=== PATIENT | male | born 1935 | race Caucasian/White ===

== ENCOUNTER 2021-01-12 14:38 | Inpatient (IN) | payer MEDICARE, OTHER ==
[~2021-01-12] VITALS: Ht 182.9 cm; Wt 97.9 kg
[2021-01-12] MEDS ORDERED: ELIQUIS5 MG PO (16:21)
[2021-01-12] MEDS ORDERED: LIPITOR20 MG PO (16:21)
[2021-01-12] MEDS ORDERED: BUSPAR5 MG PO (16:22)
[2021-01-12] MEDS ORDERED: DONEPEZIL HCL5 MG PO (16:22)
[2021-01-12] MEDS ORDERED: PROSCAR5 MG PO (16:22)
[2021-01-12] MEDS ORDERED: MELATONIN 3 MG1 TAB PO (16:23)
[2021-01-12] MEDS ORDERED: MIRALAX17 GM PO (16:23)
[2021-01-12] MEDS ORDERED: PROTONIX40 MG PO (16:24)
[2021-01-12] MEDS ORDERED: MULTI-DAY VITAM1 TAB PO (16:24)
[2021-01-12] MEDS ORDERED: TRAZODONE HCL50 MG PO (16:25)
[2021-01-12] MEDS ORDERED: BACTRIM DS TAB1 EAC1 PO (16:25)
[2021-01-12 16:33] VITALS: BP 126/73; BMI 29.3
--- NOTE | 2021-01-12 16:50 | NUR ---
NEW ADMIT TO DOCTOR MEJIAS FOR AGGRESSION FROM [facility]. PATIENT WAS YELLING OUT, AGGRESSIVE WITH STAFF AND , AND UNCOOPERATIVE WITH CARE. PATIENT TRANSPORTED VIA EMS. UPON ARRIVAL, PATIENT WAS SLIGHTLY UNCOOPERATIVE WITH CARE. COMPLIANT WITH ADMISSION ASSESSMENTS. NATALIIA ALARM PLACED ON BED. ALARM ON AND WORKING. , CALLIE HALL, NOTIFIED OF PATIENT'S ARRIVAL. TELEPHONE CONSENTS TO TREAT RECEIVED FROM CALLIE. CODE STATUS DISCUSSED WITH . PATIENT IS A FULL CODE. CODE NUMBER FOR INFORMATION OF 5903 GIVEN TO . GIVEN UNIT INFORMATION. SHE VERBALIZES UNDERSTANDING. STATES "I FEEL ALOT BETTER ABOUT HIM COMING TO [facility] UNIT NOW. THANK YOU."
[2021-01-12 20:00] VITALS: BP 163/63
--- NOTE | 2021-01-12 20:02 | NUR ---
RECEIVED IN BEDROOM. RESTING QUIETLY IN A RECLINING CHAIR. CALM AND COOPERATIVE WITH CARE AND ASSESSMENT. NO SIGNS OF AGGRESSION. DIFFICULT WITH SIMPLE DIRECTIONS. REDIRECT AND REORIENT NEEDED. CONTINUES TO REST QUIETLY IN A RECLINER. CONTINUE PLAN OF CARE.
--- NOTE | 2021-01-13 07:40 | NUR ---
NURSE SPOKE WITH PT'S . PASSCODE GIVEN. SHE WANTED AN UPDATE ON HOW HE WAS DOING. NURSE REPORTED WHAT PREVIOUS SHIFT STATED NO BEHAVIORS. NURSE NOTED THUS FAR NO BEHAVIORS NOTED ON THIS SHIFT. PT ALLOWED STAFF TO OBTAIN VITALS SIGNS, ASSESSMENT. COVID SWABBED OBTAINED. NO BEHAVIORS NOTED. PT CONTS ON DROPLET ISOLATION FOR PUI COVID. SHE INQUIRED ABOUT IF THE DOCTOR WILL PRESCRIBE HIM ANY ANTIPSYCHOTIC DRUGS DO YOU KNOW? NURSE NOTED THAT NURSE COULD NOT MAKE THAT DETERMINATION IF THE DOCTOR WOULD PRESCRIBE ANY MEDICATIONS. NURSE STATED THE DOCTORS WOULD BE IN TODAY TO EVAL HIM. WE GENERALLY RECOMMEND SEVERAL DAYS FOR PT TO SETTLE IN BEFORE A IN DEPTH ASSESSMENT CAN BE REPORTED. "WELL THATS GOOD SO YOU SAID NO AGGRESSION HUH?" NURSE STATED PREVIOUS SHIFT DID NOT REPORT ANY AND THUS FAR NO HAS BEEN NOTED. SOMETIMES IT DOES TAKE LONGER FOR BEHAVIORS TO MANIFEST. SHE SOMEWHAT VERBALIZIED UNDERSTANDING. SHE STATED SHE DID NOT LIKE THE 2 PREVIOUS PLACES AND THAT SHE DID NOT LIKE HE GOT HALDOL FOR AGRESSION. NURSE NOTED SHE COULD CALL AT ANY TIME FOR UPDATES ON PT FROM STAFF BUT RECOMMANDED A COUPLE OF DAYS BEFORE FAMILY PHONE CALLS. SHE VERBALIZIED UNDERSTANDING.
[2021-01-13 07:59] VITALS: BP 107/71
--- NOTE | 2021-01-13 08:27 | PSY ---
PATIENT NAME:ARETHA AHLL MEDICAL RECORD: [id number] : 39 LOCATION:[facility] ADMISSION DATE: 01/12/21 ACCOUNT: [id number] PSYCHIATRIC EVALUATION DATE OF EVALUATION: 01/12/21 IDENTIFYING DATA: The patient is 85 years old. He is admitted to the hospital on a voluntary basis. CHIEF COMPLAINT: Aggression. HISTORY OF PRESENT ILLNESS: The patient comes to us from a rehabilitation center in [place]. 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 After 2 days at the rehabilitation center, they were unable to handle him because of his aggression and have referred him to us. Apparently, we were the closest facility that could meet his needs. The patient himself is oriented to person only. He tells me he does not know why they sent him, but he is fine with being here. He denies that he was aggressive. He denies he has had a stroke and he tells me he was never in a rehab center at a longterm. PAST MEDICAL HISTORY: Significant for 2 previous strokes, the most recent one being within the past few weeks. He does have some right-sided weakness, but no facial droop. No speech abnormalities are observable. He has a history of atrial fibrillation and hypertension. PAST PSYCHIATRIC HISTORY: Significant for a previous psychiatric hospitalization in another facility. I do not know the circumstances associated with that. His has spoken to one of our nurses. I have not spoken to her yet. She says that he was over sedated and wants us to be careful not to do that again. FAMILY HISTORY: Unknown. ALLERGIES: No known drug allergies. CURRENT MEDICATIONS: Please see the admissions MAR. SOCIAL HISTORY: The patient has been 5 times. His current and he have been for 20 years. He has 3 children according to the fifth , he tells me he only has 2. He tells me that he is a [employer] and retired . 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 He denies a history of alcohol, drug or tobacco abuse, which may or may not be accurate. MENTAL STATUS EXAMINATION: The patient is awake, alert and oriented to person only. He tells me he is 35 years old and that he is in [place]. His mood is euthymic. His affect is appropriate. Thought processes are disorganized. Memory, concentration, and abstraction abilities are impaired. He denies that he would seek to harm himself or others as well as psychotic symptoms. ASSESSMENT: AXIS I: Major vascular neurocognitive disorder. AXIS II: None. AXIS III: Atrial fibrillation, hypertension, status post stroke. AXIS IV: Moderate. AXIS V: Global assessment of functioning is 30. PLAN: At this time, the patient is admitted to the hospital secondary to aggressive behavior at a longterm. He will be treated with both mood stabilizing and memory enhancing medications. His long-term prognosis is guarded. TRANSINT:[id number] Voice Confirmation ID: [id number] DOCUMENT ID: [id number] JAIME MEJIAS MD at 0827 CC: [id number] DICTATION DATE: 01/12/21 1600 FELTING MACHINE OPERATOR: 01/12/21 1611 ADM IN [facility] [address] [place] [address]
--- NOTE | 2021-01-13 08:45 | NUR ---
PT STATED IN PREVIOUS PHONE CALL THIS SHIFT IN REGARDS TO EATING HABITS. SHE DID NOT WANT STAFF TO FEED PT IF HE CAN DO IT HIMSELF AND THATS NOT GOING TO HELP HIM GET ANY BETTER. NURSE STATED WE WOULD ASSIST FEED PT AND SET UP PTS TRAY NEEDED. SHE STATED HE DOES NOT DRINK ALOT AND HE HAS A RIGHT SIDE DEFICIENT AND HE CAN SEE ON HIS RIGHT SIDE. SO YOUR GOING TO HAVE TO SET IT ON HIS LEFT SIDE.
[2021-01-13 10:02] LABS: BASOPHILS 0.3 % (0-2); EOSINOPHILS 1.5 % (0-7); HEMATOCRIT 39.7 % (42.0-54.0); HEMOGLOBIN 13.3 g/dL (13.5-17.5); IMMATURE GRANULOCYTES 0.2 % (0-5); LYMPHOCYTE ABS# 1.56 10x3/uL (1.32-3.57); LYMPHOCYTES 14.9 % (15-50); MCH 32.4 pg (26.0-34.0); MCHC 33.5 g/dL (31.0-37.0); MCV 96.6 fL (80.0-100.0); MEAN PLATELET VOLUME 10.5 fL (7.4-10.4); MONOCYTES 7.7 % (2-11); NEUTROPHIL ABS# 7.91 10x3/uL (1.78-5.38); NEUTROPHILS 75.4 % (40-80); RBC 4.11 10x6/uL (4.20-6.10); RDW 13.3 % (11.5-14.5); WBC 10.5 10x3/uL (4.8-10.8)
[2021-01-13 10:04] LABS: PLATELET COUNT 148 10x3/uL (130-400)
[2021-01-13 10:23] VITALS: Ht 182.9 cm; Wt 97.9 kg
--- NOTE | 2021-01-13 11:01 | NUR ---
PT/OT HERE TO EVAL FOR ADMISSION. WILL EVAL AT A LATER TIME DUE TO PT BEING DROWSY.
[2021-01-13 11:02] LABS: ALBUMIN 3.5 g/dL (3.4-5.0); ALKALINE PHOSPHATASE 63 U/L (30-120); ALT (SGPT) 29 U/L (10-68); BILIRUBIN - TOTAL 1.65 mg/dL (0.2-1.3); CALC OSMOLALITY 276 mosm/kg (275-300); CALCIUM 9.2 mg/dL (8.5-10.1); CARBON DIOXIDE 24.2 mmol/L (21.0-32.0); CHLORIDE - SERUM 103 mmol/L (98-107); CHOLESTEROL, TOTAL 125 mg/dL (0-200); CREATININE - SERUM 1.1 mg/dL (0.6-1.3); GLUCOSE 97 mg/dL (74-106); HDL CHOLESTEROL 62 mg/dL (32-96); LDL CHOLESTEROL 52 mg/dL (0-100); LDL-HDL RATIO 0.8 ratio (1.5-3.5); POTASSIUM - SERUM 4.4 mmol/L (3.5-5.1); PROTEIN - SERUM 6.6 g/dL (6.4-8.2); SODIUM 138 mmol/L (136-145); THYROID STIMULATING HORMONE 0.57 uIU/mL (0.36-3.74); TRIGLYCERIDE 58 mg/dL (30-200); UREA NITROGEN 14 mg/dL (7-18); eGFR NON AFRICAN AMERICAN 68 mL/min (90-120)
--- NOTE | 2021-01-13 12:35 | NUR ---
PT CALLIE CALLED TO CHECK ON PT AT THIS TIME. PASSCODE GIVEN. SHE WANTED TO KNON HOW HE WAS DOING. OTHER NURSE GAVE AN UPDATE AT THIS TIME. NURSE GAVE AN UPDATE OF MEDS, LUNCH ASSIST AND NO AGRESSION NOTED. SHE INQUIRED IF HE HAD EATEN, ANY AGGRESSION NOTED. SHE STATED WELL WHAT IS GOING ON AT THE OTHER PLACE? THEY SHIPPED HIM OUT BEFORE 24 HOURS OVER THERE. NURSE GAVE AN UPDATE HOW FOOD ASSIST.
--- NOTE | 2021-01-13 14:52 | NUR ---
Rec'd patient this am lying supine in a reclining wheelchair. "Stefan" is A/O times 1 to person. When he is spoken to, he will open his eyes. He is non-verbal to this nurse. He is calm and he followed a few simple directions, otherwise he lies in his chair with his eyes closed.He has a HX of CVA. He has had no yelling out and no agressive episodes to this date/nurse or to other patients. His calls freq. stone the day requesting information about his care and needs. He is a one to one activity and a one to one to group. He will be brought to activity/group when he is out of PUI isolation.
--- NOTE | 2021-01-13 18:12 | NUR ---
With MHT present, attempted to transfer patient from w/c to bed amd after setting him down to bed, he became combative and started punching this nurse in the chest and abdomen. The MHT was able to talk to him and settle him to the point of him lowering his arms and stating "I'm sorry".
[2021-01-13 20:00] VITALS: BP 106/61
--- NOTE | 2021-01-14 01:36 | NUR ---
RECEIVED PATIENT IN HIS ROOM, HE IS PUI, HE IS COOPERATIVE WITH MEDS, PLEASANT, NO YELLING OR AGGRESSION AT THIS TIME. HOWEVER HE DID SHOW AGGRESSION EARLIER ON PREVIOUS SHIFT AND THIS WAS DISCUSSED WITH HIS AND SHE WAS INFORMED THAT HE WAS ABLE TO BE DEESCALATED WITHOUT MEDICATION. HE WAS COMPLIANT WITH MEDS. WILL FOLLOW POC
[2021-01-14 08:13] LABS: RAPID PLASMA REAGIN Non Reactive (Non Reactive)
[2021-01-14 08:50] VITALS: BP 111/56
--- NOTE | 2021-01-14 08:54 | PN ---
PATIENT:ARETHA HALL MEDICAL RECORD: [id number] LOCATION:[facility] ADMISSION DATE: 01/12/21 PROGRESS NOTE DATE OF SERVICE: 01/13/2021 SUBJECTIVE: The patient's case was discussed with staff. He has no new complaint. OBJECTIVE: The patient is very significantly and seriously impaired cognitively. He has almost no insight about his situation. He has not been aggressive today. ASSESSMENT: Dementia. PLAN: Current medicines have been reviewed. I am going to start him on Namenda at a dose of 2.5 mg twice daily. TRANSINT:[id number] Voice Confirmation ID: [id number] DOCUMENT ID: [id number] JAIME MEJIAS MD at 0854 CC: [id number] DICTATION DATE: 01/13/21 170 DIVISION ORDER ANALYST: 01/14/21 0115 ADM IN [facility] [address] [place] [address]
--- NOTE | 2021-01-14 10:00 | NUR ---
SW SPOKE TO PT'S , CALLIE, TO DISCUSS DISEASE PROGRESSION, UNIT ORIENTATION, DIFFERENT LEVELS OF CARE, PT'S CONDITION, PT'S BEHAVIORS ON THE UNIIT, CARE GIVING STRESS, THE IMPORTANCE OF SELF CARE, DISCHARGE PLANNING NEEDS, DISEASE PROGRESSOIN, AND RESOURCES FOR FAMILIES SUCH THE 36 HOUR DAY AND ALZ.ORG. CALLIE STATED SHE WAS HAPPY WITH THE CARE PT IS BEING GIVEN ON THE UNIT. SHE REPORTED NO OTHER NEEDS AND VOICED UNDERSTANDING OF CONVERSATION.
--- NOTE | 2021-01-14 10:19 | NUR ---
NURSE ENTERED PT ROOM DUE TO BED ALARM GOING OFF. PT WAS SITTING ON SIDE OF BED UNDRESSED. ATTEMPTING TO PUT THE COVERS OVER HIS HEAD. NURSE REDIRECTED PT BACK INTO BED, REDRESSED, FIXED COVERS. PT DID NOT UNDERSTAND REDIRECTION DUE TO LOW CONGITIVE FUNCTION. PT YELLED OUT "I GOTTA GO DO IT." NURSE STATED SHE COULD TAKE CARE OF ISSUE. PT YELLED "NO I DONT CARE WHO DOES I DO." NURSE REDIRECTED AND REDRESSED PT. BED ALARM IN PLACE AND ACTIVE. NURSE NOTIFIED OF INCIDENT AT THIS TIME. WILL CONT PLAN OF CARE.
--- NOTE | 2021-01-14 10:22 | NUR ---
PT LAYING IN BED AT THIS TIME. PT IS CONFUSED AND DISORIENTED TO PLACE, TIME AND SITUATION. ALERT TO SELF ONLY. PT CAN NOT MAKE NEEDS KNOWN. PT IS DIFFICULT TO REDIRECT AT THIS TIME. PT CAN NOT UNDERSTAND REDIRECTION. PT IS COMPLIANT WITH MEDS, VITALS AND ASSESSMENTS. CONTS ON DROPLET PRECAUTIONS FOR PUI SARS-19 RESULTS. CONT ON ISOLATION UNTIL RESULTS ARE BACK. PT HAS RIGHT SIDE WEAKNESS. REQUIRES ASSISTANCE WITH ALL ALDS. BED ALARM IN PLACE AND ACTIVE. WILL CONT PLAN OF CARE.
--- NOTE | 2021-01-14 17:50 | NUR ---
Late Entry: Nurse spoke with pt at this time. passcode given at this time. requested an update on pts combative behavior, medications changes, and how he was doing in general. nurse stated pt was sitting in [place] by nursing station due to attempting to walk by himself and causing the alarm in go off. she stated she could not believe he tried to walk by himself since he cant walk. so is he having any aggressive behavior?" nurse noted that he has some aggressive behavior with redirection. she stated well im glad that your doctor does not just throw medications at him. The last last place did and i was not happy." nurse stated the reason for long admission stays are due to the doctor on staff here does not like to start with high doses for agressive behaviors. she did verbalize some understanding stating well so far im happy with the care he has rec'd so far and stated she would call at a later time.
[2021-01-14 20:00] VITALS: BP 117/78
[2021-01-14 22:49] LABS: BILIRUBIN NEGATIVE (NEGATIVE); KETONE NEGATIVE (NEGATIVE); NITRITE NEGATIVE (NEGATIVE); UROBILINOGEN NORMAL mg/dL (< 2)
[2021-01-14 22:53] LABS: BACTERIA FEW HPF (NONE SEEN); SQUAMOUS EPITHELIAL NONE SEEN HPF (0-4); WHITE CELLS - URINE 0-5 HPF (0-1)
--- NOTE | 2021-01-15 02:55 | NUR ---
B) Patient is alert and oriented to self, very confused, right side weakness, patient does not understand instruction at times, I) Administered scheduled medications as ordered, monitored for safety R) Mediation compliant, sleeping now quietly in his bed, P) Continue plan of care.
--- NOTE | 2021-01-15 09:37 | NUR ---
Nutrition Follow-up Eating well per MD notes. Diet: Regular PO intake: ~57% average x last 6 meals Last BM: 01/14/21 x 4. Wt: 215.8# (01/13/21) Meds noted: megace, MVI, bactrim. Labs reviewed. Estimated nutrition needs and nutrition diagnosis unchanged at this time. Nutrition goals- progressing Recommend continue regular PO diet, or per APPLICATION ARCHITECT recommendations. Recommend continue to encourage PO intake at meals times. Offer oral nutrition supplement if patient eats <65% of meals. RD will follow-up 01/20/21.
--- NOTE | 2021-01-15 10:01 | NUR ---
lab called to notify nurse the sample was not adequate to run test and would have to be retested. Nurse notified nurse manager of change, order in the computer for retest.
[2021-01-15 11:37] VITALS: BP 109/67
--- NOTE | 2021-01-15 12:43 | NUR ---
PT SITTING IN W/C EATING WITH ASSISTANCE AT THIS TIME. CONFUSION NOTED. REDIRECT AND REORIENT NEEDED. NO AGRESSIVE BEHAVIOR NOTED THUS FAR. PT IS ALERT TO SELF ONLY. RIGHT SIDE WEAKNESS NOTED. ASSIST WITH ADLS. CAN NOT MAKE NEEDS KNOWN. PT COMPLIANT WITH MEDS, VITALS AND ASSESSMENTS. PT CONTS TO HAVE MULTIPLE BRUISES FROM PRIOR TO ADMISSION. NO C/O OF FACIAL GRIMACING NOTED. BED ALARM AND CHAIR ALARM IN PLACE AND ACTIVE. PT CONTS ON DROPLET ISOLATION DUE TO RESULTS NOT CLEAR. WILL CONT PLAN OF CARE.
--- NOTE | 2021-01-15 16:16 | NUR ---
Nurse spoke with at this time. passcode given. she inquired about if he had any new med changes. nurse stated the only new medication change was Megace was added yesterday. she stated well gosh he eats well so i don't understand why he has something to make him eat. Nurse stated that the doctor stated in her note that since he was feeder that she would add a medication to continue good eating habits. she inquired about why he was not started on any medications for his aggression. nurse stated he has not had any extreme agressive behaviors and sleeping well at night. he has on been here since 01/12/21. It's still early in the evaluation process of medication changes. nurse spoke with her about toileting, facility choices, brief, bladder concern, COVID results had to be redone. In the hallway with a mask on. cont to take antibiotic for UTI. he is not on many medications as it is. She had a neuropsych doctor pull him off all his pysch medications and that helped. He was aggressive while he was on that medications. she stated that she was happy with the care he is rec'ing. she stated she was going to call after 5:30 to see how he is going to react. she verbalizied understanding. nurse gave her tips on communication when she calls to speak with him so he is not agitated with her phone call. she verbalizied understanding.
[2021-01-15 17:21] LABS: SARS-CoV-2 ANTIGEN NEGATIVE- SARS-COV-2 (NEGATIVE)
--- NOTE | 2021-01-15 17:50 | NUR ---
SPOUSE CALLS ,PASSCODE RECEIVED.SPOUSE REQUEST TO SPEAK WITH .THIS NURSE ASKED HER IF SHE COULD CALL BACK BECAUSE HE IS EATING,BEING FED PER TECH,TRAYS WERE SERVED LATE. LOUDLY AND ANGRILY STATED "I JUST TALKED TO SOMEONE AND SHE SAID TO CALL BACK IN 15 MINUTES AND IT'S BEEN 20.THIS NURSE ASKED HER IF SHE WOULD LIKE FOR ME TO TAKE HIS TRAY AND LET HIS FOOD GET COLD.SHE LOUDLY AND ANGRILY STATED"YOU DON'T HAVE TO TALK TO ME THAT WAY,I'M NOT AN IDIOT." THIS NURSE ATTEMPTED TO APOLOGIZE FOR OFFENDING HER BUT SHE HUNG UP .
--- NOTE | 2021-01-15 18:53 | NUR ---
called 3x. staff attempted to take cordless phone to pts room. hunged up each time before staff could make it into pts room. called during time pt was in restroom staff asked for her to call back. she stated she would do so. talked to pt at 1829. pt did not seem upset by phone call at this time. nurse asked if it went well. pt stated "what went well?"
[2021-01-15 20:00] VITALS: BP 114/69
--- NOTE | 2021-01-15 21:27 | NUR ---
PT IS RECEIVED IN HIS ROOM ON DROPLET ISOLATION PENDING COVID RESULTS. PT IS ALERT AND ORIENTED TO SELF ONLY. POOR INSIGHT INTO HIS SITUATION. RESTLESS AT TIMES. EASY TO REDIRECT. NO AGGRESSION NOTED. VERY UNSTEADY GAIT. COMPLIANT WITH ALL MEDICATIONS. DENIES ANY FURTHER NEEDS. BED ALARM ON AND WORKING. MONITOR FOR SAFETY.
--- NOTE | 2021-01-16 05:18 | NUR ---
SPOKE WITH PT WITH A BEHAVIOR UPDATE. INFORMED HER THAT HE IS RESTLESS AT TIMES BUT WAS ABLE TO BE REDIRECTED. NO AGGRESSION NOTED. PT EXPRESSED APPRECIATION WITH STAFF. SHE RELATED THAT HE WAS SUPPOSED TO DC TO SNF REHAB BUT SHE WAS HESITANT AND WANTED TO DISCUSS WITH RUFUS OTHER OPTIONS SOMETIME BEFORE DISCHARGE.
[2021-01-16 08:14] VITALS: BP 167/91
--- NOTE | 2021-01-16 09:51 | NUR ---
The patient is so confused, he does not understand he is on isolation for PCR, so he will not stay in his room, he is sitting in the hudson away from staff and peers with a mask on, he has poor insight into his situation and he can not communicate his needs, he tries to ambulate, but he is unsteady. He needs frequent reminders not to walk alone and help to put his mask on. He needs assist to eat, ambulate, and toilet. Provide prescribed meds. He is compliant with meds. He did not want to listen about wearing his mask and he got upset and tried to fight a little. Walked him to his room, but he decided to wear his mask and come back out. Continue POC.
--- NOTE | 2021-01-16 10:05 | NUR ---
Spoke to the patient's spouse and she checked on him, she wanted to ensure that he get physical therapy. Explained to her that staff have walked him and he does ok, but he takes baby steps. Explained to her that he gets frustrated, but he has not shown aggression this am, ensured her that we will make sure he has a physical therapy to get him stronger.
--- NOTE | 2021-01-16 10:25 | NUR ---
The patient is assisted by two staff to his room to lay down. He asked to go home, but explained to him that he is in the hospital because his behavior was aggressive and a lot of times a stroke will cause you to act differently. He listened and acted like he understood. He was getting frustrated because he wanted to leave.
--- NOTE | 2021-01-16 16:26 | NUR ---
The patient stood up and staff were trying to redirect him and he did not like that and he stood and he is so unsteady he fell back, he laughed and staff picked him up and explained to him that he was unsteady, but he doesn't comprehend. Marga his spouse notified and Dr. Sesay notified. VSS except HR 102. Patient did not hit his head and Biaca and this nurse saw him fall. AROM, no new bruises, although, he has old bruises to his buttocks.
--- NOTE | 2021-01-16 17:45 | NUR ---
Late entry: The patient's spouse called and she had spoken to her spouse, she said "Well, I am concerned with Stefan's speech, I couldn't understand a word he said." Explained to her that most of the day I have not understood what he has said, there are moments of clarity where he may say a sentence that makes sense, but it is typical with dementia and at times it can happen quite rapidly." She said "Well, at home he was not like that, do you think he had a stroke?" Explained to her that I did not see any deficits to indicate a stroke. She was a bit upset and stated "Well, last night he made perfect sense, maybe he is tired." Explained to her that Yes, he is tired he has been up walking and moving around all day and often the patient's .
--- NOTE | 2021-01-16 18:30 | NUR ---
WILL NOT REDIRECT.CONSTANTLY GETTING OUT OF CHAIR WITHOUT ASSIST.VERY UNSTEADY GAIT.ARGUMENTIVE AND PULLS AWAY FROM STAFF WHEN TRYING TO ASSIST HIM BACK INTO CHAIR.WANTS TO LEAVE FACILITY.ATIVAN 0.5MG IM TO LEFT DELTOID GIVEN FOR ANXIETY.
--- NOTE | 2021-01-16 19:50 | NUR ---
PT IS ALERT AND ORIENTED TO SELF ONLY. RESTLESS AT TIMES. DIFFICULT TO REDIRECT AND MISINTERPRETS STAFFS INTENSIONS. ASSISTED INTO A GERICHAIR WHERE HE APPEARS MORE COMFORTABLE. VOCALIZES TO SELF AT TIMES. COMPLIANT WITH ALL MEDICATIONS. RESISTANT TO REDIRECT. MONITOR FOR SAFETY.
[2021-01-16 20:00] VITALS: BP 130/85
--- NOTE | 2021-01-16 22:07 | NUR ---
SPOKE TO SHE WAS CONCERNED ABOUT HIM HAVING TO RECEIVED A PRN INJECTION OF ATIVAN. ENCOURAGED NOT TO DISCOURAGED. SHE WAS VERY CONCERNED ABOUT HOW HE SOUNDED VERY CONFUSED ON THE PHONE DURING PHONE HOURS. SPOKE WITH HER ABOUT NEW MEDICATIONS. INFORMED HER THAT HE IS CURRENTLY CALM IN A RECLINER SITTING OUTSIDE THE NURSES STATION.
--- NOTE | 2021-01-17 08:28 | NUR ---
The patient is sitting in the hallway at this time. He is confused, he knows his name sometimes, but he also has echolalia. He has poor insight into his situation. He does not know where he is or place or time. He has not shown aggression this am, but he is still sleepy. Offered him breakfast and he is too sleepy at this time to eat. Provide prescribed meds. Monitor his beahvior. He is confused as he tries to get up and walk alone, but he is unsteady. Continue POC.
--- NOTE | 2021-01-17 13:17 | NUR ---
AGGRESSIVE WITH STAFF WHEN ATTEMPTING TO REDIRECT.HITS AT MHT.SITTING UP IN HALLWAY IN WHEELCHAIR,CONSTANTLY ATTEMPTING TO GET OUT OF CHAIR WITHOUT ASSIST.GAIT VERY UNSTEADY.IS CONSTANTLY OBSERVED BY STAFF FOR SAFETY.GEODON 10MG IM TO LEFT ARM GIVEN.
--- NOTE | 2021-01-17 14:00 | NUR ---
GOOD RESPONSE TO GEODON ,RESTING WITH EYES CLOSED,RESP.REGULAR AND EVEN.
--- NOTE | 2021-01-17 14:24 | NUR ---
The patient's spouse called and asked about meds. Let her know the medications and the d/c meds. She said she did not like Bactrim. She also asked why he was taken off of his statin and the Buspar, she said "The Buspar makes him think clearer and he is able to do his thereapy." She waould like the Dr. to please call her. Attempted to explain about the medications and she said "I know my better than a Dr. I sound like a Dr. don't I?" Explained to her "No, ma'am, but that she does know her and his medications." She is concerned. She says before he came here he was conversing and making sense. I told her "Of course I just met him, but he has been mostly nonsensical in conversation with very minimal times of full sentences." She also wonders what he may get discharged on to help with the aggression. Explained to her "It is a fine line about medications because we do not want to oversedate, but we have to reduce the aggression." She verbalized understanding.
--- NOTE | 2021-01-17 19:26 | NUR ---
RECEIVED IN BEDROOM. NATALIIA ALARM SOUNDING. EXITS BED WITHOUT ASSIST TO USE BATHROOM. ASSIST TO BATHROOM. NO SIGNS OF AGGRESSION. REDIRECT AND REORIENT NEEDED. CONTINUES TO REST QUIWETLY IN BED AT THIS TIME. CONTINUE PLAN OF CARE.
[2021-01-17 21:35] VITALS: BP 112/50
--- NOTE | 2021-01-18 05:10 | NUR ---
SPOKE WITH PT THIS MORNING. SHE INQUIRED ABOUT HIS BEHAVIORS THIS SHIFT. INFORMED HER THAT HE HAS SLEPT MOST OF THE NIGHT AND NO AGGRESSION NOTED.
--- NOTE | 2021-01-18 06:58 | NUR ---
COVID SWAB COLLECTED PER POLIY AND SENT TO LAB.
[2021-01-18 10:31] VITALS: BP 140/70
--- NOTE | 2021-01-18 13:41 | PN ---
PATIENT:ARETHA HALL MEDICAL RECORD: [id number] LOCATION:[facility] ADMISSION DATE: 01/12/21 PROGRESS NOTE DATE OF SERVICE: 01/14/2021 SUBJECTIVE: The patient's case was discussed with staff. He has no new complaint. OBJECTIVE: The patient denies intent to harm himself or others. He is participating in treatment, but not eating particularly well. ASSESSMENT: Dementia. PLAN: The patient is going to be prescribed Megace to assist with appetite stimulation. He will be monitored for clinical changes associated with its use. His long-term prognosis is guarded. TRANSINT:[id number] Voice Confirmation ID: [id number] DOCUMENT ID: [id number] JAIME MEJIAS MD at 1341 CC: [id number] DICTATION DATE: 01/14/212010 SOW FARM BARN TECHNICIAN: 01/14/21 2131 ADM IN [facility] [address] [place] [id number]
--- NOTE | 2021-01-18 17:45 | NUR ---
RECEIVED IN PATIENT ROOM. RESTING IN BED WITH EYES OPEN. CALM AND COOPERATIVE WITH CARE AND ASSESSMENT. NO AGGRESSIVE BEHAVIOR. REDIRECT AND REORIENT NEEDED. EATING DINNER AT THIS TIME. CONTINUE PLAN OF CARE.
--- NOTE | 2021-01-18 21:10 | NUR ---
CALLED AND ASK ABOUT PT. WAS TOLD HE TOOK HIS MEDS AND HAD AN HS SNACK AND IS NOW RESTING CALMLY IN BED. SHE STATED HE USUALLY GO TO SLEEP AROUND 1999 BUT LIKES TO KEEP HIM UP LATER. WAS TOLD HE GETS UP TO BATHROOM WITH ONE PERSON ASSIST AND STAFF REINFORCED THIS IS. WAS ON THE PHONE ABOUT FIVE MINUTES WITH SNF STAFF.
--- NOTE | 2021-01-18 21:57 | NUR ---
RECEIVED IN BEDROOM. RESTING IN BED WITH EYES CLOSED. RESPONDS TO VOICE. CALM AND COOPERATIVE WITH CARE AND ASSESSMENT. NO SIGNS OF AGGRESSION. REDIRECT AND REORIENT NEEDED. CONTINUES TO REST QUIETLY IN BED WITH EYES CLOSED. CONTINUE PLAN OF CARE.
[2021-01-18 22:55] VITALS: BP 95/69
--- NOTE | 2021-01-19 05:00 | NUR ---
PT CALLED FOR UPDATE. INFORM HER PT HAD A GOOD NIGHT. SLEPT WELL. NO SIGNS OF AGGRESSION. UP WITH ONE PERSON ASSIST TO THE BATHROOM WITH NO INCONTINENCE EPISODES. SHE ASK MANY QUESTIONS ABOUT THE UNIT. SHE WAS ON THE PHONE WITH THIS NURSES ABOUT 15 MINUTES.
[2021-01-19 08:00] VITALS: BP 134/77
--- NOTE | 2021-01-19 13:17 | PN ---
PATIENT:ARETHA HALL MEDICAL RECORD: [id number] LOCATION:[facility] ADMISSION DATE: 01/12/21 PROGRESS NOTE DATE OF SERVICE: 01/18/2021 The patient's case was discussed with staff. He has no new complaint. OBJECTIVE: The patient denies intent to harm himself or others. He is tolerating his medicines well. He has poor insight about his situation and is eating and sleeping well. He is only oriented to person. I am not sure if he is going to be able to follow the directions for a Rehab unit, but with regard to his behaviors here, he is no longer requiring this level of care. I will refer him to a rehab unit soon. TRANSINT:[id number] Voice Confirmation ID: [id number] DOCUMENT ID: [id number] JAIME MEJIAS MD at 1317 CC: [id number] DICTATION DATE: 01/18/21 1613 QUIRK SANDER: 01/18/21 1739 ADM IN [place] [address] [place] [address]
--- NOTE | 2021-01-19 16:03 | NUR ---
STAFF CALLED PATIENT'S , CALLIE HALL, AND ALLOWED HER TO TALK TO HER PER KEITH.
--- NOTE | 2021-01-19 17:53 | NUR ---
RECEIVED IN PATIENT ROOM. RESTING IN BED WITH EYES CLOSED. CALM AND COOPERATIVE WITH CARE AND ASSESSMENT. NO AGGRESSIVE BEHAVIOR. REDIRECT AND REORIENT NEEDED. EATING DINNER AT THIS TIME. CONTINUE PLAN OF CARE.
[2021-01-19 20:00] VITALS: BP 141/81
--- NOTE | 2021-01-20 03:30 | NUR ---
PT CALLED. UPDATE ON PT STATUS. ON PHONE WITH FOR 15 MINUTES.
--- NOTE | 2021-01-20 08:34 | PN ---
PATIENT:ARETHA HALL MEDICAL RECORD: [id number] LOCATION:[facility] ADMISSION DATE: 01/12/21 PROGRESS NOTE DATE OF SERVICE: 01/19/2021 SUBJECTIVE: The patient's case was discussed with staff. He has no new complaint. OBJECTIVE: The patient has been in good behavioral control and cooperative. ASSESSMENT: Vascular dementia. PLAN: Current medicines have been reviewed. I have started him back on BuSpar at his 's request. I did speak with the for more than 30 minutes today. She did not provide any history that I had not already heard more than once. I am concerned about her expectations. She does not believe that the staff at the group home handled him correctly and that they precipitated his aggression. This is despite the fact that this is his third psychiatric hospitalization in 3 years, all for aggressive behaviors associated with dementia. She also objects to the p.r.n. medications that are used to control his behaviors. However, I explained the relative risks and benefit and that it is certainly hard on the cardiovascular system of the patient to be angry, cursing, yelling or aggressive and there is also a safety issue for other patients and staff and all of these factors must be taken into account. She does not agree. She would like him transferred to rehab as soon as possible. I will comply with those wishes as soon as it is practical to do so. He has not been aggressive here. I do believe it is because of the skill with which our staff is handling him and to a lesser degree the pharmacology that I have administered. TRANSINT:[id number] Voice Confirmation ID: [id number] DOCUMENT ID: [id number] JAIME MEJIAS MD at 0834 CC: [id number] DICTATION DATE: 01/19/21 1620 FILL MANAGER: 01/19/[address] [facility] [address] [place] [address]
--- NOTE | 2021-01-20 10:52 | NUR ---
Nutrition Re-Assessment Diet: Regular PO intake: ~36% average x last 9 meals, ~58% average x 3 meals yesterday Last BM: 01/16/21 Wt: 215.8# (01/13/21), no new weight Meds noted: megace, MVI. No new chem labs. Estimated nutrition needs remain unchanged from initial nutrition assessment at this time. Nutrition diagnosis: Inadequate energy intake r/t mental status and advanced age AEB PO intake <50% average x last 9 meals. Not meeting nutrition goals at this time, progressing towards goals. Recommendations/Interventions: -Continue Regular diet. Will continue to honor food preferences. -Recommend encouraged PO intake at meal times. -Recommend continue appetite stimulant as medically feasible. -Will add Ensure with meals. -RD will continue to monitor PO intake and wt trend. -RD will follow-up within 7 days.
--- NOTE | 2021-01-20 12:30 | NUR ---
RECEIVED IN PATIENT ROOM. RESTING IN BED WITH EYES OPEN. CALM AND COOPERATIVE WITH CARE AND ASSESSMENT. NO AGGRESSIVE BEHAVIOR. REDIRECT AND REORIENT NEEDED. EATING LUNCH AT THIS TIME. CONTINUE PLAN OF CARE.
--- NOTE | 2021-01-20 16:35 | NUR ---
[facility] SPOKE TO , CALLIE. SW DISCUSSED DISCHARGE PLAN. CALLIE WANTS PT TO BE REFERRED TO [facility]. [facility] STATED SHE IS WAITING ON PT EVALUATION AND THEN WILL SEND THE REFERRAL. CALLIE VOICED UNDERSTANDING. [facility] FAXED REFERRAL 3/ WHEN PT EVALUATION WAS COMPLETED. NO OTHER NEEDS WERE VOICED AT THIS TIME.
[2021-01-20 20:00] VITALS: BP 101/75
--- NOTE | 2021-01-20 21:11 | NUR ---
PT IS ALERT AND ORIENTED TO SELF ONLY. CALM AND COOPERATIVE WITH STAFF. USING A WHEELCHAIR TO ASSIST WITH AMBULATION. ABLE TO VOICE MOST OF HIS NEEDS. RESTLESS AT TIMES. EASY TO REDIRECT. COMPLIANT WITH ALL MEDICATONS. MONITOR FOR SAFETY.
[2021-01-21 09:37] VITALS: BP 98/76
--- NOTE | 2021-01-21 11:59 | PN ---
PATIENT:ARETHA HALL MEDICAL RECORD: [id number] LOCATION:[facility] ADMISSION DATE: 01/12/21 PROGRESS NOTE DATE OF SERVICE: 01/20/2021 SUBJECTIVE: The patient's case was discussed with staff. He has no new complaint. OBJECTIVE: The patient is in good behavioral control. He is doing well and is ready for discharge. ASSESSMENT: Vascular dementia. PLAN: Current medicines have been reviewed and will be maintained. Long-term prognosis is guarded. TRANSINT:[id number] Voice Confirmation ID: [id number] DOCUMENT ID: [id number] JAIME MEJIAS MD at 1159 CC: [id number] DICTATION DATE: 01/20/21 1648 TELESALES ADVISOR: 01/20/21 2313 ADM IN [place] [id number] [place] [address]
--- NOTE | 2021-01-21 12:37 | NUR ---
NURSE SPOKE WITH CALLIE AT THIS TIME. PASSCODE GIVEN. NURSE GAVE AN UPDATE. PT WAS AGGRESSIVE WITH STAFF DURING REDIRECTION THIS SHIFT. STAFF REDIRECTED PT AT THAT TIME. LOTS OF REDIRECTION TO ENCOURAGE PT TO REDIRECT. STATED SHE WAS SURE HE WAS FEELING SOME TYPE OF WAY ABOUT HIM BEING FORCED TO BE THERE. NURSE STATED THE PT WAS ABLE TO LEAVE HIS ROOM AND HE WAS ADMITTED TO US NOT ON A HOLD. SHE STATED NO NO I GET IT. HE IS THERE BUT I ALSO WANTED TO KNOW IF THE PAPERWORK HAD BEEN SENT TO THE OTHER FACILITY FOR HIM TO LEAVE. NURSE STATED PAPERWORK WAS SENT EARLY THIS MORNING DUE TO FACILITYS FAX MACHINE WAS NOT WORKING. BUT THE REFERRAL WAS SEND THIS MORNING. SHE VERBALIZIED UNDERSTANDING TO PAPERWORK TO BE SENT. NURSE NOTED SHE COULD CALL THE FACILITY AND FOLLOW UP WITH THE INQUIRY PROCESS. STATED SHE DID NOT HAVE THE NUMBER TO THE FACILITY. SHE THINKS HER MOTHER IS IN THAT FACILITY THO. NURSE PROVIDED THE CORRECT NAME AND NUMBER TO THE FACILITY. SHE THANKED NURSE FOR THE INFORMATION.
--- NOTE | 2021-01-21 15:33 | NUR ---
Patients spouse calls wanting to leave a message for "Faisal" bilingual social worker. She states that she contacted [facility] and they told "me" that they will be requesting [facility] records from his last rehab stay" "thats all I needed to tell her, thanks"
--- NOTE | 2021-01-21 17:46 | NUR ---
PT SITTING IN W/C IN FRONT OF NURSES STATION. PT IS CALM AND COOPERATIVE AT THIS TIME. PT IS ALERT TO SELF ONLY. CONFUSION NOTED. REDIRECT AND REORIENT NEEDED. COMPLIANT WITH MEDS, VITALS AND ASSESSMENTS. PITTING EDEMA NOTED TO BILATERAL ANKLES 2+. PT REFUSED TO PROP FEET UP. PT DID HAVE AN AGGRESSIVE EPISODE WITH REDIRECTION. PT CONTS TO BE A FALL RISK. CHAIR ALARM IN PLACE AND ACTIVE. WILL CONT PLAN OF CARE.
--- NOTE | 2021-01-21 19:30 | NUR ---
PT ALERT AND ORIENTED TO SELF ONLY. POOR INSIGHT INTO HIS SITUATION. CALM AND COOPERATIVE WITH STAFF. RELATES THAT HE IS TIRED. COMPLIANT WITH ALL MEDICATIONS. EASY TO REDIRECT. MONITOR FOR SAFETY.
[2021-01-21 20:00] VITALS: BP 114/74
--- NOTE | 2021-01-21 21:57 | NUR ---
SPOKE WITH PT . INFORMED HER THAT HE WAS CALM THIS EVENING COMPLAING OF BEING TIRED. INFORMED THAT HE HAD RECEIVED AND ATIVAN INJECTION TODAY. SHE EXPRESSED CONCERN THAT THE FACILITY HE IS DISCHARGING TO WILL NOT BE ABLE TO HANDLE HIM.
--- NOTE | 2021-01-22 13:20 | NUR ---
KATY Lester APRN ORDERED KUB, RIGHT HIP X-RAY. NO BRUISES NOTED TO RIGHT HIP. STAFF PUSHED PT UNDER THE TABLE AT LUNCH. HE C/O OF PAIN AT THAT TIME. NURSE ROM ON LEFT LEG NO PAIN NOTED. WHEN NURSE LIFTED RIGHT LEG CRIED OUT IN PAIN NURSE INQUIRED WHERE THE PAIN WAS HE GRABBED HIS RIGHT HIP. NURSE REPORTED TO DOCTOR AT THIS TIME. WILL CONT TO MONITOR AT THIS TIME.
--- NOTE | 2021-01-22 13:27 | NUR ---
X-RAY HERE AT THIS TIME.
[2021-01-22 14:13] VITALS: BP 128/83
--- NOTE | 2021-01-22 14:14 | NUR ---
At approx. 10 am, spouse calls inquiring about how her is doing. She ask if he had been "acting out" this morning and why he had the Ativan yest. I explained about his behaviors yest to staff and other patients. She stated "is he better now?" I told her yes and that he ate a good breakfast and took his meds this am. She ask various other questions and talked to this nurse about Hx of the patients.
--- NOTE | 2021-01-22 14:25 | NUR ---
NURSE NOTIFIED DR. BUCKLEY WHEN RESULTS OF X-RAY IMAGE WAS BACK. NEW ORDER: CONSULT ORTHO FOR FRACTURE, TRANSFER TO MED-SURG UNDER THE CARE OF DR. OROPEZA. ORDER IN COMPUTER FOR Hilaria RAY MD ORTHO NURSE NOTIFIED NURSE WELL.
--- NOTE | 2021-01-22 14:30 | NUR ---
NURSE CALLED DR. OROPEZA TO NOTIFY OF PT TRANFSER AND DR. BUCKLEY ORDERS. ORDERS WROTE AND FAXED TO CONFIGURATION MANAGEMENT SPECIALIST. AWAITING BED AT THIS TIME.
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
[2021-01-22] MEDS ORDERED: PERPHENAZINE2 MG PO (14:56)
[2021-01-22] MEDS ORDERED: NAMENDA5 MG PO (14:58)
--- NOTE | 2021-01-22 15:30 | NUR ---
NURSE CALL NURSE WINDOWS SECURITY ENGINEER AND RADIO PRESENTER IN REGARDS TO PT TRANSFER.
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
--- NOTE | 2021-01-22 18:18 | NUR ---
Rec'd patient this am sitting in a w/c and then was changed to a reclining w/c for comfort. He was med compliant and took meds crushed and placed in food. He has had an x-ray today of his hip and his abdomen. He has had minimal pain complaints today. Dr. Snow visited today at 1815. He is able to be directed and redirected. He did not participate in group/activities today.
--- NOTE | 2021-01-22 19:22 | NUR ---
PT IS TRANSFER TO 2203.
--- NOTE | 2021-01-22 19:22 | NUR ---
DR. RAY CALLED ASKING FOR PT PHONE NUMBER. NURSE GAVE DR. RAY PHONE NUMBER.
--- NOTE | 2021-01-22 19:30 | NUR ---
RN CARDIOVASCULAR ICU CALLED BED ASSIGNMENT ROOM TO SUMA PALRN
--- NOTE | 2021-01-22 19:45 | NUR ---
REPORT CALLED TO MED/SURG NURSE, DONI MARCIAL VIA BED.
--- NOTE | 2021-01-22 20:00 | NUR ---
TRANSFERRED TO ROOM 2202 VIA BED WITH 2 COURIERS AND MHT.
--- NOTE | 2021-01-25 13:27 | PN ---
PATIENT:ARETHA HALL MEDICAL RECORD: [id number] LOCATION:[facility] ADMISSION DATE: 01/12/21 PROGRESS NOTE DATE OF SERVICE: 01/21/2021 SUBJECTIVE: The patient's case was discussed with staff. He has no new complaint. OBJECTIVE: The patient is oriented to person only. He is sleeping well and only eating marginally well. ASSESSMENT: Vascular dementia. PLAN: The patient's wants him transferred to a group home for rehabilitative services. I think that is reasonable, but I am not sure how well he can participate. From a behavioral standpoint, he is fine for discharge and if a group home will accept him and give him a trial of therapy, I think that is reasonable and appropriate and he may be discharged as soon as those arrangements can be made. I know the equipment planner social worker masters is doing everything she can to reasonably make that happen as soon as possible. In the interim supportive care will be continued. TRANSINT:[id number] Voice Confirmation ID: [id number] DOCUMENT ID: [id number] JAIME MEJIAS MD at 1327 CC: [id number] DICTATION DATE: 01/21/21 1834 STEPDOWN NURSE: 01/21/21 2147 DIS IN 01/22/21 [id number] [place] [address]
== END 2021-01-22 19:00 | disposition short-term general hospital (02) | DRG 56 ==
LOC: D.PSYCH 14:38
PROVIDERS: ADMIT Psychiatry & Neurology Psychiatry; ATTEND Psychiatry & Neurology Psychiatry
DX: I69.319 Unspecified symptoms and signs involving cognitive functions following cerebral infarction (principal); S72.001A Fracture of unspecified part of neck of right femur, initial encounter for closed fracture; F01.51 Vascular dementia, unspecified severity, with behavioral disturbance; Z20.822 Contact with and (suspected) exposure to COVID-19; I10 Essential (primary) hypertension; X58.XXXA Exposure to other specified factors, initial encounter; I69.393 Ataxia following cerebral infarction; I48.0 Paroxysmal atrial fibrillation; N40.0 Benign prostatic hyperplasia without lower urinary tract symptoms; K21.9 Gastro-esophageal reflux disease without esophagitis; G47.00 Insomnia, unspecified; I25.10 Atherosclerotic heart disease of native coronary artery without angina pectoris

== ENCOUNTER 2021-01-22 17:49 | Inpatient (IN) | payer MEDICARE, OTHER ==
[~2021-01-22] VITALS: Ht 182.9 cm; Wt 97.5 kg
--- NOTE | 2021-01-22 | NUR ---
Rec'd report from Maria Ines on at 1938 and pt arrived on unit at 2009. No orders in computer and call placed to Dr. Chelsea field with message left, along with pager text. No return. Pt's paperwork just found in room with orders. Will input and then administer per order. supervisor microwave notified of same. Pt was assisted via 6 staff to transfer from prior bed to med surg bed. Pt is able to assist with turning in bed and this does cause pain but, quickly subsides when not moving. Assessment completed and spouse did call to get update on patient.
[~2021-01-22 17:49] MED LIST: BACTRIM DS TAB1 EAC1 PO; BUSPAR5 MG PO; DONEPEZIL HCL5 MG PO; ELIQUIS5 MG PO; LIPITOR20 MG PO; MELATONIN 3 MG1 TAB PO; MIRALAX17 GM PO; MULTI-DAY VITAM1 TAB PO; NAMENDA5 MG PO; PERPHENAZINE2 MG PO; PROSCAR5 MG PO; PROTONIX40 MG PO; TRAZODONE HCL50 MG PO
[2021-01-22 23:43] VITALS: BP 157/92; BMI 29.2
[2021-01-23 01:26] VITALS: BP 153/89
[2021-01-23 06:26] VITALS: BP 156/77
--- NOTE | 2021-01-23 08:00 | NUR ---
ALERT AND ORIENTED TO SELF ONLY. PERICARE AND LINEN CHANGE DONE DUR TO URINARY INCONTINENCE AND REPOSITIONED FOR COMFORT. RIGHT LEG EXTERNALLY ROTATED WITH SHORTNING OF EXTREMITY. PEDAL PULSES NOTED WITH SKIN W/D/I. DENIES ANY PAIN OR DISCOMFORT AT THIS TIME. REQUIRES TOTAL ASSSIT WITH MEALS. IV STARTED TO RIGHT F/A WITH 20G X1 STICK. CONSENT FOR PROCEDURE OBTAINED FROM WELL EKG DONE. FALL PRECAUTIONS IN PLACE.
[2021-01-23 08:08] LABS: BASOPHILS 0.1 % (0-2); EOSINOPHILS 0.3 % (0-7); HEMATOCRIT 38.5 % (42.0-54.0); HEMOGLOBIN 13.2 g/dL (13.5-17.5); IMMATURE GRANULOCYTES 0.2 % (0-5); LYMPHOCYTE ABS# 0.96 10x3/uL (1.32-3.57); LYMPHOCYTES 7.2 % (15-50); MCH 32.4 pg (26.0-34.0); MCHC 34.3 g/dL (31.0-37.0); MCV 94.4 fL (80.0-100.0); MONOCYTES 7.2 % (2-11); NEUTROPHIL ABS# 11.39 10x3/uL (1.78-5.38); RBC 4.08 10x6/uL (4.20-6.10); RDW 13.9 % (11.5-14.5); WBC 13.4 10x3/uL (4.8-10.8)
[2021-01-23 08:24] LABS: PLATELET COUNT 178 10x3/uL (130-400)
[2021-01-23 08:26] VITALS: BP 128/68
[2021-01-23 08:32] LABS: INR 1.62 (0.85-1.17); PROTIME 17.8 SECONDS (11.6-15.0)
[2021-01-23 08:55] LABS: ALBUMIN 3.2 g/dL (3.4-5.0); ANION GAP 12.6 mmol/L (8-16); BILIRUBIN - TOTAL 1.77 mg/dL (0.2-1.3); CALCIUM 9.3 mg/dL (8.5-10.1); CARBON DIOXIDE 24.5 mmol/L (21.0-32.0); CREATININE - SERUM 1.2 mg/dL (0.6-1.3); POTASSIUM - SERUM 4.1 mmol/L (3.5-5.1); THYROID STIMULATING HORMONE 0.57 uIU/mL (0.36-3.74)
[2021-01-23 11:57] VITALS: Ht 182.9 cm; Wt 97.5 kg
[2021-01-23 13:25] VITALS: BP 110/67
[2021-01-23 17:11] VITALS: BP 95/72
[2021-01-23 20:00] VITALS: BP 96/52
--- NOTE | 2021-01-23 20:00 | NUR ---
Assumed care of pt after report/rounds. Pt is alert and oriented to self. In bed resting at time of assessment. Denies pain/discomfort and shows no s/sx of same. Closing eyes to sleep during assessment but, did follow simple commands.
[2021-01-24 00:08] VITALS: BP 108/67
[2021-01-24 04:51] VITALS: BP 116/65
--- NOTE | 2021-01-24 06:02 | NUR ---
Pt has been running a temp of 99.8 Axillary for most the night. Ice has been applied to femoral area, axillary and wrists. This has been effective in decreasing temp and orally, temp was 97.8. Dr. Snow was notified of same and spouse was updated when she called for status check on him. Spouse had already hung up before oral temp checked after ice application. Pt remains resting in bed.
--- NOTE | 2021-01-24 07:59 | NUR ---
APTIENT PREMEDICARTED FOR SURGERY WITH CONSENTS SIGNED FOR PROCEDURE TO RIGHT HIP. OR STAFF HERE FOR TRANSPORT
--- NOTE | 2021-01-24 09:23 | NUR ---
CONFIRMED CONSENT, ALLERGIES, AND PRESENCE OF METAL IN BODY WITH DUE TO PATIENT NOT BEING OF SOUND MIND. SCABS AND BRUISING ALREADY EVIDENT ON LOWER LEGS BILATERALLY UPON ENTERING OR. THROUGH TRAFFIC KEPT TO A MINIMUM. CLEANED WITH BLUE TOWELS AND ALCOHOL PRIOR TO PREPPING. STERILE GOWNED AND GLOVED TO PREP WITH CHLORAPREP.
[2021-01-24 11:22] VITALS: BP 99/55
--- NOTE | 2021-01-24 11:30 | NUR ---
AWAKE WITH DRESSING INTACT TO RIGHT HIP WITH EVELIO DRAIN NOTED WITH SEROUS DRAINAGE. DENIES ANY PAIN OR DISCOMFORT AT THIS TIME. PEDAL PULSES NOTED W/O PERIPHERAL EDEMA. FALL PRECAUTIONS IN PLAXE WITH TELEMETRY INTACT. DENIES ANY CHEST PAIN OR DISCOMFORT WITH SCD'S ON. IVF INFUSING AT PRESCRIBED RATE
[2021-01-24 12:28] LABS: BASOPHILS 0.1 % (0-2); EOSINOPHILS 0.2 % (0-7); HEMATOCRIT 40.6 % (42.0-54.0); HEMOGLOBIN 13.6 g/dL (13.5-17.5); IMMATURE GRANULOCYTES 0.3 % (0-5); LYMPHOCYTE ABS# 0.45 10x3/uL (1.32-3.57); MCH 32.6 pg (26.0-34.0); MCHC 33.5 g/dL (31.0-37.0); MEAN PLATELET VOLUME 9.4 fL (7.4-10.4); NEUTROPHIL ABS# 14.31 10x3/uL (1.78-5.38); NEUTROPHILS 94.4 % (40-80); PLATELET COUNT 192 10x3/uL (130-400); RBC 4.17 10x6/uL (4.20-6.10); RDW 14.6 % (11.5-14.5); WBC 15.2 10x3/uL (4.8-10.8)
[2021-01-24 12:29] LABS: MCV 97.4 fL (80.0-100.0)
[2021-01-24 12:45] LABS: ALBUMIN 3.1 g/dL (3.4-5.0); ANION GAP 14.2 mmol/L (8-16); BILIRUBIN - TOTAL 0.97 mg/dL (0.2-1.3); POTASSIUM - SERUM 4.2 mmol/L (3.5-5.1); PROTEIN - SERUM 7.2 g/dL (6.4-8.2)
[2021-01-24 12:48] LABS: CREATININE - SERUM 1.7 mg/dL (0.6-1.3)
[2021-01-24 19:35] VITALS: BP 101/62
--- NOTE | 2021-01-24 20:18 | NUR ---
Assumed care of pt after report/rounds. Pt is alert and oriented to self only. Pt did ask to get up out of bed. Did verbalize to pt that he had surgery and wouldn't be able to get up tonight. Pt denied same. Pt was pleasant and cooperative with cares and displays no s/sx of pain/discomfort and denies same when asked. In bed with IV running per order. Diamond is patent and draining alen urine. Surgical dressing to Rt hip is CDI and drain is functioning appropriately
--- NOTE | 2021-01-25 01:30 | NUR ---
Pt was checked during rounds and found to have drain pulled, dressing off and tugging on cathetar. Did assess pt and according to FACES Allen scale he is 10/10 in pain. IV dilaudid given and reassurance. Pt has calmed and staff stayed in room with pt until same was achieved. Pt is now resting. Cath is draining red urine and remains insitu place approrpiately on assessment. Dressing replaced with sterile 4X4's and covered with tegaderm. Charge has been notified and this nurse was instructed to call provider later in the morning. Pt is asymptomatic of problems. Incision site remained well approximated with adaptic. Drain area covered with sterile gauze as well.
--- NOTE | 2021-01-25 02:49 | NUR ---
Pt found with checks to be pulling on cath again. Same D/C'd early as D/C was scheduled for 6 am and pt causing more trauma to self with guallpa. Pt did verbalize relief and tolerated well.
--- NOTE | 2021-01-25 05:43 | NUR ---
This nurse called Dr. Snow to inform him of pt behaviors and status along with interventions. Dr. Snow agreed with same and wanted no further orders.
--- NOTE | 2021-01-25 07:33 | NUR ---
RECIEVED BEDSIDE REPORT. PATIENT IN ROOM SLEEPING. AROUSES TO VOICE, DENIES NEEDS AT THIS TIME. BED LOW POSITION, CALL LIGHT IN REACH. FREE FROM SIGNS OF DISTRESS. WILL CONTINUE TO MONITOR.
[2021-01-25 09:04] VITALS: BP 127/85
--- NOTE | 2021-01-25 11:52 | MORECARE ---
CASE MANAGEMENT DISCHARGE SUMMARY PATIENT: ARETHA HALL UNIT: [id number] ADM DATE: 01/22/21 AGE: 85 : 37 SEX: M ROOM/BED: D.2203 AUTHOR: CANDELARIO HILTON PHYSICIAN: REFERRING PHYSICIAN: RACHANA OROPEZA MD DATE OF SERVICE: 01/25/21 Discharge Plan Patient Name: ARETHA HALL [facility] [facility] 1935 Planned Disposition: Intermediate Facility Anticipated Discharge Date: Discharge Date: Expected LOS: Initial Reviewer: [email or web address] Initial Review Date: 01/22/2021 Generated: 01/25/21 12:51 pm DCPIA - Discharge Planning Initial Assessment Updated by [email or web address]: Jayshree Madrid on 01/25/21 11:50 am * PCP RIC GUTIERREZ * Preadmission Environment Intermediate Facility * Facility Name [facility] * ADLs Partial Dependent * Partial ADLs (Assistance needed) Bathing Dressing Medication Management * Equipment Rolling Walker * List name and contact numbers for known caregivers / representatives who currently or will assist patient after discharge: CALLIE HALL [phone] * Verbal permission to speak to the caregivers and representatives has been obtained from the patient. Yes * Additional services required to return to the preadmission environment? Yes * Can the patient safely return to the preadmission environment? No * Has this patient been hospitalized within the prior 30 days at any hospital? Yes Patient Name: ARETHA HALL Page [id number] at 1152 All edits/amendments must be made on the electronic document DICTATION DATE: 01/25/21 1151 STUD DAIRY CATTLE FARMER: ILANA 01/25/21 1151 RPT#: [id number] DC DATE: STATUS: ADM IN [facility] [address] [place] [address] END OF REPORT
--- NOTE | 2021-01-25 11:59 | MORECARE ---
CASE MANAGEMENT DISCHARGE SUMMARY PATIENT: ARETHA NICHOLAS UNIT: [id number] ADM DATE: 01/22/21 AGE: 85 : 37 SEX: M ROOM/BED: D.2203 AUTHOR: LIDA,DOC PHYSICIAN: REFERRING PHYSICIAN: RACHANA OROPEZA MD DATE OF SERVICE: 01/25/21 Discharge Plan Patient Name: ARETHA NICHOLAS Facility: [facility]:[place] : 1935 Planned Disposition: Residential Facility Anticipated Discharge Date: Discharge Date: Expected LOS: Initial Reviewer: [email or web address] Initial Review Date: 01/22/2021 Generated: 01/25/21 12:58 pm Comments DCP- Discharge Planning Updated by [email or web address]: Jayshree Madrid on 01/25/21 10:[address] Patient Name: ARETHA NICHOLAS Admission Status: Elective Accout number: [id number] Admission Date: 01-22-2021 : 1935 Admission Diagnosis: Attending: RACHANA OROPEZA Current LOS: 3 Anticipated DC Date: Planned Disposition: Residential Facility Primary Insurance: MEDICARE A & B Discharge Planning Comments: spoke with Marga Nicholas ( patient's ) about discharge planning. She stated that prior to his fall that they had plan on [facility] to [facility] . She has been in contact with Mans[facility] there. The discharge plan has not changed and the [facility] will be to dc him on Mon, pending ortho's OK to dc there. Per Faisal at [facility] his joseph has been done and been sent to Faye ( the admissons person there) I will reach out to Faye to see if she needs any other information [facility] [phone] [facility] Information Technology Security Manager: Jayshree Madrid DCPIA - Discharge Planning Initial Assessment Updated by [email or web address]: Jayshree Madrid on 01/25/21 11:50 am * PCP RIC GUTIERREZ * Preadmission Environment Residential Facility * Facility Name [facility] * ADLs Partial Dependent * Partial ADLs (Assistance needed) Bathing Dressing Medication Management * Equipment Rolling Walker * List name and contact numbers for known caregivers / representatives who currently or will assist patient after discharge: MARGA NICHOLAS [phone] * Verbal permission to speak to the caregivers and representatives has been obtained from the patient. Yes * Additional services required to return to the preadmission environment? Yes * Can the patient safely return to the preadmission environment? No * Has this patient been hospitalized within the prior 30 days at any hospital? Yes Last DP export: 01/25/21 10:52 am Patient Name: ARETHA NICHOLAS Page [id number] at 1159 All edits/amendments must be made on the electronic document DICTATION DATE: 01/25/21 1158 PHOTOCOPYING MACHINE OPERATOR: ILANA 01/25/21 1158 RPT#: [id number] DC DATE: STATUS: ADM IN [facility] [address] [place] [address] END OF REPORT
[2021-01-25 12:21] VITALS: BP 121/56
--- NOTE | 2021-01-25 13:39 | NUR ---
PATIENT IN BED. CONFUSED. DENIES NEEDS AT THIS TIME. BED LOW POSITION, CALL LIGHT IN REACH. WILL CONTINUE TO MONITOR.
[2021-01-25 16:13] VITALS: BP 92/65
[2021-01-25 19:51] VITALS: BP 94/53
--- NOTE | 2021-01-25 21:20 | OP ---
PATIENT NAME: ARETHA NICHOLAS MEDICAL RECORD: [id number] :37 LOCATION:D.MS [id number] ADMISSION DATE:01/22/21 SURGEON: DARLINE SINGER MD DATE OF OPERATION: 01/24/2021 PREOPERATIVE DIAGNOSIS: Right femoral neck fracture. POSTOPERATIVE DIAGNOSIS: Right femoral neck fracture. PROCEDURE PERFORMED: Right hip hemiarthroplasty. INDICATIONS: Mr. Nicholas is an 85-year-old male with a history of a stroke was in the psych unit here at [facility] when he fell a few days ago. He did not complain of any pain at that time, but later began complaining of worsening pain in his hip and was found to have a right femoral neck fracture. He was admitted and preoperative workup was completed. Arrangements made for him to come to the operating room today for right hip hemiarthroplasty. Risks, benefits, and alternatives of surgery were discussed with the patient and consent was obtained. DESCRIPTION OF PROCEDURE: The patient was met in the holding area where his identity and confirmation of procedure was performed. The right lower extremity was marked. He was taken to the operating room. He was placed supine on the operating table. Anesthesia was administered. He was then positioned on the [place] table. Extremities were positioned and padded appropriately. The right lower extremity was prepped and draped in a sterile fashion. The patient received preoperative antibiotics and a timeout was performed prior to initiating the case. On initiation of the case, an anterior Nicholas-Perez approach was utilized for exposure. We incised through the skin and subcutaneous tissues down to the tensor fascia. The fascia was then split longitudinally and the interval between tensor and sartorius/rectus was utilized for deep exposure. The lateral circumflex vessels were identified, tagged, and cauterized. We then dissected down to the anterior hip capsule, placed retractors around the superior and inferior femoral neck. Retractor was also placed over the anterior brim of the acetabulum. Anterior capsule was then excised and the femoral neck fracture was visible. Retractors were repositioned around the femoral neck. Our femoral neck cut was completed. The bony pieces were removed. The femoral head was removed with a corkscrew device. Retractors were repositioned around the acetabulum and tissue from around the acetabulum was debrided. The head was sized to a size 51 and we trialled with a size 50 bipolar head and felt to have good fit and stability. We then turned our attention to the proximal femur. A hook was placed under the proximal femur and the leg was externally rotated. The leg was then taken into extension and adduction. We then released tissue at the shoulder of the proximal femur as we continued to elevate the hip for exposure. Once we were pleased with our exposure, we began preparing the proximal femur using a cookie cutter followed by canal finder. We then began reaming and reamed up sequentially to a size 13. We then broached with a size 10 starting with the size 10 and going up to a 13, at which point, we had good fit and stability. This was trialled with a neutral head and neck and noted to have good fit and stability with near equal leg lengths. Our hip was again dislocated and repositioned. The trial components were removed and final implants were placed. The stem was placed and had good fit within the canal. The head was then tapped into position. The hip was again reduced and the images were obtained that showed good fit of our stem with near equal leg lengths. The wound was irrigated thoroughly with saline. Joint OPERATIVE REPORT [id number] ARETHA NICHOLAS solution was injected around the capsule proximal femur. The tensor fascia was then closed with running Vicryl suture. Subcutaneous tissues were irrigated thoroughly with saline. A drain was placed extrafascially. Tissue was used to cover the drain and the subcutaneous skin was then closed with Vicryl suture. Skin was closed with Monocryl and then covered with a Prineo Dermabond dressing. This was covered with a sterile dressing. The patient was turned back over to anesthesia where he was awakened, extubated, and taken to recovery room in stable condition. POSTOPERATIVE PLAN: The patient is going to be admitted to the floor for continued postoperative care. He will receive 24 hours of postoperative antibiotics, will be started back on his blood thinner medicine tomorrow. Physical therapy will be consulted to assist with mobility. Weightbearing as tolerated, right lower extremity. The patient is going to require rehab upon discharge. COMPLICATIONS: None. ESTIMATED BLOOD LOSS: 100 mL. ANESTHESIA: General. TRANSINT:[id number] Voice Confirmation ID: [id number] DOCUMENT ID: [id number] DARLINE SINGER MD at 2120 CC: [id number] DICTATION DATE: 01/24/21 1045 TANK CARPENTER: 01/24/21 1822 ADM IN [facility] [address] [id number]
[2021-01-26 04:44] VITALS: BP 110/62
[2021-01-26 04:51] LABS: MCH 31.8 pg (26.0-34.0); MCHC 32.8 g/dL (31.0-37.0); MCV 96.8 fL (80.0-100.0); MEAN PLATELET VOLUME 9.6 fL (7.4-10.4); RDW 14.3 % (11.5-14.5)
[2021-01-26 05:06] LABS: HEMATOCRIT 26.8 % (42.0-54.0); HEMOGLOBIN 8.8 g/dL (13.5-17.5); RBC 2.77 10x6/uL (4.20-6.10); WBC 10.2 10x3/uL (4.8-10.8)
[2021-01-26 05:07] LABS: ANION GAP 10.5 mmol/L (8-16); CALCIUM 8.1 mg/dL (8.5-10.1); CARBON DIOXIDE 22.3 mmol/L (21.0-32.0); CREATININE - SERUM 1.7 mg/dL (0.6-1.3); POTASSIUM - SERUM 4.8 mmol/L (3.5-5.1)
--- NOTE | 2021-01-26 06:39 | NUR ---
Pt remained in bed resting tonight. Did wake to voice but, quickly fell back to sleep. Did take off dressing to Rt hip X1 and same was replaced with strile 4X4's and covered with tegaderm. Incision remains well approximated with trace swelling to upper Rt thigh/hip area. Spouse called last HS with update given.
--- NOTE | 2021-01-26 07:28 | NUR ---
RECIEVED BEDSIDE REPORT. PATIENT IN BED SLEEPING. CONFUSED TO PLACE, TIME, AND SITUATION. BED LOW POSITION, CALL LIGHT IN REACH. WILL CONTINUE TO MONITOR.
--- NOTE | 2021-01-26 07:57 | MORECARE ---
CASE MANAGEMENT DISCHARGE SUMMARY PATIENT: ARETHA NICHOLAS UNIT: [id number] ADM DATE: 01/22/21 AGE: 85 : 37 SEX: M ROOM/BED: D.2203 AUTHOR: LIDA,DOC PHYSICIAN: REFERRING PHYSICIAN: RACHANA OROPEZA MD DATE OF SERVICE: 01/26/21 Discharge Plan Patient Name: ARETHA NICHOLAS Facility: [facility]:[place] : 1935 Planned Disposition: [facility] Facility Anticipated Discharge Date: Discharge Date: Expected LOS: Initial Reviewer: [email or web address] Initial Review Date: 01/22/2021 Generated: 01/26/21 8:57 am Comments DCP- Discharge Planning Updated by [email or web address]: Jayshree Madrid on 01/26/21 6:[address] FAXED UPDATES TO [facility] THIS AM DCP- Discharge Planning Updated by [email or web address]: Jayshree Madrid on 01/25/21 10:[address] Spoke with Faye at [facility] she would like updates when therapy evaluates patient anticipate dc on wed DCP- Discharge Planning Updated by [email or web address]: Jayshree Madrid on 01/25/21 10:[address] Patient Name: ARETHA NICHOLAS Admission Status: Elective Accout number: [id number] Admission Date: 01-22-2021 : 1935 Admission Diagnosis: Attending: RACHANA OROPEZA Current LOS: 3 Anticipated DC Date: Planned Disposition: [facility] Facility Primary Insurance: MEDICARE A & B Discharge Planning Comments: spoke with Marga Nicholas ( patient's ) about discharge planning. She stated that prior to his fall that they had plan on discharging him to [facility] in . She has been in contact with Mansi there. The discharge plan has not changed and the [facility] will be to dc him on Wed, pending ortho's OK to dc there. Per Faisal at [facility] his joseph has been done and been sent to Faye ( the admissons person there) I will reach out to Faye to see if she needs any other information [facility] [phone] Faye Clinical Operations Consultant: Jayshree Madrid DCPIA - Discharge Planning Initial Assessment Updated by [email or web address]: Jayshree Madrid on 01/25/21 11:50 am * PCP RIC GUTIERREZ * Preadmission Environment [facility] Facility * Facility Name [facility] * ADLs Partial Dependent * Partial ADLs (Assistance needed) Bathing Dressing Medication Management * Equipment Rolling Walker * List name and contact numbers for known caregivers / representatives who currently or will assist patient after discharge: MARGA NICHOLAS [phone] * Verbal permission to speak to the caregivers and representatives has been obtained from the patient. Yes * Additional services required to return to the preadmission environment? Yes * Can the patient safely return to the preadmission environment? No * Has this patient been hospitalized within the prior 30 days at any hospital? Yes External Providers External Provider: OTHER-OTHER Next Contact Date: Service Request Date: Service Type: Resolution: Reviewer: Comments: Last DP export: 01/25/21 10:59 am Patient Name: ARETHA NICHOLAS Page [id number] at 0757 All edits/amendments must be made on the electronic document DICTATION DATE: 01/26/21756 CUSTOMER SUCCESS REPRESENTATIVE: ILANA 01/26/21756 RPT#: [id number] DC DATE: STATUS: ADM IN [facility] [address] [place] [address] END OF REPORT
[2021-01-26 09:07] VITALS: BP 108/66
--- NOTE | 2021-01-26 11:28 | DS ---
PATIENT:ARETHA HALL :37 MEDICAL RECORD: [id number] DISCHARGE SUMMARY ADMISSION DATE: 01/22/21 DISCHARGE DATE: IDENTIFYING DATA: The patient is 85 years old and he was admitted to the hospital secondary to aggression. CHIEF COMPLAINT: None. HISTORY OF PRESENT ILLNESS: The patient was in a rehabilitation center in [place]. He had had a left hemispheric stroke and had been stabilized enough to be sent for rehabilitation, but they were unable to handle him because he was aggressive with the staff. They referred him to us for this aggressive behavior. HOSPITAL COURSE: The patient was referred so far from [place] because apparently other facilities were full and the tells me that she had him at 2 other psychiatric facilities in the past several years and was not happy with the care. Apparently, the patient has a longstanding and very advanced dementia and was not significantly aggressive here. The patient's instructed me on what medicines I was to give and limited me to those only with the exception of the p.r.n. medicines for aggressive behavior that I would not discontinue for safety reasons and I did convince her to let me give him a low dose of Trilafon for a short period of time to assist with thought disorganization and aggressive behavior. Unfortunately, he fractured his hip here. The circumstances of the hip fracture are uncertain. There was no evidence of a fall. He was not ambulatory without a great deal of assistance that was secondary to this most recent stroke and he was certainly not able to get up if he had fallen to the floor. It was simply a matter of staff was trying to reposition him and he began screaming in pain. X-ray was ordered and he was found to have a fracture. He was transferred to orthopedic surgery for treatment. At the time of discharge, the patient was severely confused, but not representing a direct behavioral risk to himself or others. DISCHARGE DIAGNOSES: AXIS I: Major vascular neurocognitive disorder. AXIS II: None. AXIS III: Atrial fibrillation, hypertension, status post stroke. AXIS IV: Moderate stressors. AXIS V: Global assessment of functioning is 35. PLAN: At the time of discharge, the patient was not acutely dangerous in any direct way. He needs a 24-hour a day supervision and I do not know if he would be able to participate in full rehabilitative services as his is requesting. His cognition is so diminished from dementia and strokes that it seems questionable that he would be able to do this. I am certainly not opposed to have trying him, but that would be a question for the rehab unit. With regard to his behaviors, his behaviors do not require him returning to this unit. If new behaviors arise, I would be happy to assess them and it may be necessary to return him for additional medication management to the behavioral unit. TRANSINT:[id number] Voice Confirmation ID: [id number] DOCUMENT ID: [id number] DISCHARGE SUMMARY REPORT [id number] ARETHA HALL, JAIME HILLMAN at 1128 CC: [id number] DICTATION DATE: 01/25/21 1424 NAIL POLISH BRUSH MACHINE FEEDER: 01/26/21 0801 ADM IN [facility] [address] [place] [address]
[2021-01-26 12:59] VITALS: BP 91/57
[2021-01-26 17:18] VITALS: BP 93/57
[2021-01-26 20:06] VITALS: BP 114/68
[2021-01-27 00:27] VITALS: BP 118/72
[2021-01-27 04:00] VITALS: BP 113/66
[2021-01-27 06:13] LABS: HEMATOCRIT 27.8 % (42.0-54.0); HEMOGLOBIN 9.2 g/dL (13.5-17.5); MCH 31.6 pg (26.0-34.0); MCHC 33.1 g/dL (31.0-37.0); MCV 95.5 fL (80.0-100.0); MEAN PLATELET VOLUME 9.4 fL (7.4-10.4); RBC 2.91 10x6/uL (4.20-6.10); WBC 9.3 10x3/uL (4.8-10.8)
[2021-01-27 06:29] LABS: ANION GAP 11.1 mmol/L (8-16); CALCIUM 8.2 mg/dL (8.5-10.1); CARBON DIOXIDE 22.7 mmol/L (21.0-32.0); CREATININE - SERUM 1.3 mg/dL (0.6-1.3); POTASSIUM - SERUM 4.8 mmol/L (3.5-5.1)
[2021-01-27 08:12] VITALS: BP 135/62
[2021-01-27 09:33] LABS: SARS-CoV-2 ANTIGEN NEGATIVE- SARS-COV-2 (NEGATIVE)
--- NOTE | 2021-01-27 10:32 | NUR ---
0700 - RECEIVED PT FROM OFFGOING NURSE RESTING QUIETLY IN BED WITH NO S/SX OF DISTRESS. WILL CONTINUE TO MONITOR.
[2021-01-27] MEDS ORDERED: LISINOPRIL10 MG PO (11:21)
[2021-01-27 12:24] VITALS: BP 107/65
--- NOTE | 2021-01-27 13:50 | MORECARE ---
CASE MANAGEMENT DISCHARGE SUMMARY PATIENT: ARETHA NICHOLAS UNIT: [id number] ADM DATE: 01/22/21 AGE: 85 : 37 SEX: M ROOM/BED: D.2203 AUTHOR: LIDA,DOC PHYSICIAN: REFERRING PHYSICIAN: RACHANA OROPEZA MD DATE OF SERVICE: 01/27/21 Discharge Plan Patient Name: ARETHA NICHOLAS Facility: [facility]:[place] : 1935 Planned Disposition: Jail Facility Anticipated Discharge Date: Discharge Date: Expected LOS: Initial Reviewer: [email or web address] Initial Review Date: 01/22/2021 Generated: 01/27/21 2:49 pm Comments DCP- Discharge Planning Updated by [email or web address]: Jayshree Madrid on 01/27/21 12:[address] I called patient's to let her know that the EMS will be here at 1430 to pick her spouse up and take him to [facility]. IMM went over via phone and will be mailed to her via certified mail. He will be going to a skilled bed. CM to follow as needed DCP- Discharge Planning Updated by [email or web address]: Jayshree Madrid on 01/26/21 6:[address] FAXED UPDATES TO [facility] THIS AM DCP- Discharge Planning Updated by [email or web address]: Jayshree Madrid on 01/25/21 10:[address] Spoke with Faye at [facility] she would like updates when therapy evaluates patient anticipate dc on mon DCP- Discharge Planning Updated by [email or web address]: Jayshree Madrid on 01/25/21 10:[address] Patient Name: ARETHA NICHOLAS Admission Status: Elective Accout number: [id number] Admission Date: 01-22-2021 : 1935 Admission Diagnosis: Attending: RACHANA OROPEZA Current LOS: 3 Anticipated DC Date: Planned Disposition: Jail Facility Primary Insurance: MEDICARE A & B Discharge Planning Comments: CM spoke with Marga Nicholas ( patient's ) about discharge planning. She stated that prior to his fall that they had plan on discharging him to [facility] in . She has been in contact with Mansi there. The discharge plan has not changed and the [facility] will be to dc him on Mon, pending ortho's OK to dc there. Per Faisal at [facility] his joseph has been done and been sent to Faye ( the admissons person there) I will reach out to Faye to see if she needs any other information Sumit Bustamante [phone] Faye Thermal Engineer: Jayshree Madrid DCPIA - Discharge Planning Initial Assessment Updated by [email or web address]: Jayshree Madrid on 01/25/21 11:50 am * PCP RIC GUTIERREZ * Preadmission Environment Jail Facility * Facility Name [facility] * ADLs Partial Dependent * Partial ADLs (Assistance needed) Bathing Dressing Medication Management * Equipment Rolling Walker * List name and contact numbers for known caregivers / representatives who currently or will assist patient after discharge: MARGA NICHOLAS [phone] * Verbal permission to speak to the caregivers and representatives has been obtained from the patient. Yes * Additional services required to return to the preadmission environment? Yes * Can the patient safely return to the preadmission environment? No * Has this patient been hospitalized within the prior 30 days at any hospital? Yes Last DP export: 01/26/21 6:58 am Patient Name: ARETHA NICHOLAS Page 12488 at 1350 All edits/amendments must be made on the electronic document DICTATION DATE: 01/27/21 134 RESIDENTIAL ENERGY AUDITOR: ILANA 01/27/21 134 RPT#: [id number] DC DATE: STATUS: ADM IN [facility] [address] [place] [address] END OF REPORT
--- NOTE | 2021-01-28 08:01 | MORECARE ---
CASE MANAGEMENT DISCHARGE SUMMARY PATIENT: ARETHA TILLMAN UNIT: [id number] ADM DATE: 01/22/21 AGE: 85 : 37 SEX: M ROOM/BED: D.2203 AUTHOR: LIDA,DOC PHYSICIAN: REFERRING PHYSICIAN: RACHANA OROPEZA MD DATE OF SERVICE: 01/28/21 Discharge Plan Patient Name: ARETHA TILLMAN Facility: [facility]:[place] : 1935 Planned Disposition: [facility]way Facility Anticipated Discharge Date: Discharge Date: 01/27/2021 Expected LOS: Initial Reviewer: [email or web address] Initial Review Date: 01/22/2021 Generated: 01/28/21 9:00 am Comments DCP- Discharge Planning Updated by [email or web address]: Jayshree Madrid on 01/27/21 12:[address] I called patient's to let her know that the EMS will be here at 1430 to pick her spouse up and take him to [facility]. IMM went over via phone and will be mailed to her via certified mail. He will be going to a skilled bed. CM to follow as needed DCP- Discharge Planning Updated by [email or web address]: Jayshree Madrid on 01/26/21 6:[address] FAXED UPDATES TO [facility] THIS AM DCP- Discharge Planning Updated by [email or web address]: Jayshree Madrid on 01/25/21 10:[address] Spoke with Faye at [facility] she would like updates when therapy evaluates patient anticipate dc on mon DCP- Discharge Planning Updated by [email or web address]: Jayshree Madrid on 01/25/21 10:[address] Patient Name: ARETHA TILLMAN Admission Status: Elective Accout number: [id number] Admission Date: 01-22-2021 : 1935 Admission Diagnosis: Attending: RACHANA OROPEZA Current LOS: 3 Anticipated DC Date: Planned Disposition: [facility]way Facility Primary Insurance: MEDICARE A & B Discharge Planning Comments: CM spoke with Marga Tillman ( patient's ) about discharge planning. She stated that prior to his fall that they had plan on discharging him to [facility] in . She has been in contact with Mansi godwin. The discharge plan has not changed and the [facility] will be to dc him on Mon, pending ortho's OK to dc there. Per Faisal at [facility] his joseph has been done and been sent to Faye ( the admissons person there) I will reach out to Faye to see if she needs any other information Sumit Bustamante [phone] Faye Leather Tanner: Jayshree Madrid DCPIA - Discharge Planning Initial Assessment Updated by [email or web address]: Jayshree Madrid on 01/25/21 11:50 am * PCP RIC GUTIERREZ * Preadmission Environment [facility] Facility * Facility Name [facility] * ADLs Partial Dependent * Partial ADLs (Assistance needed) Bathing Dressing Medication Management * Equipment Rolling Walker * List name and contact numbers for known caregivers / representatives who currently or will assist patient after discharge: MARGA TILLMAN [phone] * Verbal permission to speak to the caregivers and representatives has been obtained from the patient. Yes * Additional services required to return to the preadmission environment? Yes * Can the patient safely return to the preadmission environment? No * Has this patient been hospitalized within the prior 30 days at any hospital? Yes Coverage Notice Reviewer: [email or web address] - Jayshree Madrid Notice Issued Date-Time: 01/27/2021 13:45 Notice Type: IM Discharge Notice Notice Delivered To: Family Member Relationship to Patient: Spouse Driver Education Instructor Name: marga tillman Delivery Method: CERT - Certified Mail Stephie Days: Prior Verbal Notification: Yes Recipient Understood Notice: Yes Recipient Signature: Med Rec Note Co-signed by Attending: Coverage Notice Comment: via phone with , Marga Steven DP export: 01/27/21 12:50 p Patient Name: ARETHA TILLMAN Page [id number] at 0801 All edits/amendments must be made on the electronic document DICTATION DATE: 01/28/21799 CONTINUOUS IMPROVEMENT ENGINEER: ILANA 01/28/21799 RPT#: [id number] DC DATE:01/27/21 STATUS: DIS IN [facility] [address] [place] [address] END OF REPORT
== END 2021-01-27 15:42 | DRG 522 ==
LOC: D.MS 17:49
PROVIDERS: Anesthesiology; Orthopaedic Surgery; ADMIT Family Medicine; ATTEND Family Medicine
PROC: 0SR90JZ Replacement of Right Hip Joint with Synthetic Substitute, Open Approach (ICD-10-PCS; principal; 2021-01-24 08:00)
DX: S72.001A Fracture of unspecified part of neck of right femur, initial encounter for closed fracture (principal); F01.51 Vascular dementia, unspecified severity, with behavioral disturbance; X58.XXXA Exposure to other specified factors, initial encounter; Z87.891 Personal history of nicotine dependence; I10 Essential (primary) hypertension; I25.10 Atherosclerotic heart disease of native coronary artery without angina pectoris; I69.319 Unspecified symptoms and signs involving cognitive functions following cerebral infarction; K21.9 Gastro-esophageal reflux disease without esophagitis; N40.0 Benign prostatic hyperplasia without lower urinary tract symptoms; I48.0 Paroxysmal atrial fibrillation